=== PATIENT | male | born 1985 | race Caucasian/White ===

== ENCOUNTER 2021-10-20 12:16 | Emergency (ER) | payer SELFPAY ==
[~2021-10-20] VITALS: Ht 167.6 cm; Wt 72.7 kg
[2021-10-20 12:21] VITALS: BP 134/94
[2021-10-20] MEDS ORDERED: insulin regular, human 10 units/0.1 ml syringe SQ ONE (12:30)
== END 2021-10-20 12:47 | disposition home or self-care (01) ==
LOC: ER 12:16
DX: E11.65 Type 2 diabetes mellitus with hyperglycemia (principal); Z02.89 Encounter for other administrative examinations
CPT/HCPCS: 82948; 96372; 99283; J1815